=== PATIENT | male | born 2000 | race Caucasian/White ===

== ENCOUNTER 2022-05-22 13:37 | Emergency (ER) | payer OTHER ==
[2022-05-22 15:50] LABS: HEMOGLOBIN 14.3 gm/dl (14.0-17.5); RED BLOOD COUNT 4.93 M/UL (4.20-5.50); WHITE BLOOD COUNT 8.9 K/UL (4.5-11.0)
[2022-05-22 16:08] LABS: BUN/CREATININE RATIO 8 (0-10)
[2022-05-22] MEDS ORDERED: ZOFRAN 4 MG TAB4 MG PO (16:55)
== END 2022-05-22 18:32 | disposition home or self-care (01) ==
LOC: ER1 13:37
PROVIDERS: Preventive Medicine Occupational Medicine
DX: R11.2 Nausea with vomiting, unspecified (principal)
CPT/HCPCS: 80053; 85025; 96365; 96375; 99284; C9113; J2405